=== PATIENT | female | born 1970 | race American Indian/Alaskan Native ===

== ENCOUNTER 2019-01-18 05:42 | Observation (INO) | payer BC ==
[2019-01-14 11:42] LABS: Basophils % (Auto) 0.5 % (0.0-1.8); Eosinophils # (Auto) 0.1 K/mm3 (0.0-0.4); Eosinophils % (Auto) 1.9 % (0.0-4.3); Hematocrit 37.9 % (30.3-42.9); Hemoglobin 13.1 gm/dl (10.1-14.3); Lymphocytes # (Auto) 2.1 K/mm3 (1.2-5.4); Lymphocytes % (Auto) 30.1 % (13.4-35.0); Mean Corpuscular HGB Conc 35 % (30-34); Mean Corpuscular Volume 92 fl (79-97); Monocytes # (Auto) 0.5 K/mm3 (0.0-0.8); Monocytes % (Auto) 7.6 % (0.0-7.3); Platelet Count 336 K/mm3 (140-440); Red Blood Count 4.15 M/mm3 (3.65-5.03)
[2019-01-14 12:00] LABS: BUN/Creatinine Ratio 11; Blood Urea Nitrogen 8 mg/dL (7-17); Calcium 10.2 mg/dL (8.4-10.2); Hemolysis Index 4
--- NOTE | 2019-01-14 12:31 | Anesthesia Consultation ---
Anesthesia Consult and Med Hx Date of service: 01/18/19 - Airway Anesthetic Teeth Evaluation: Good, Caps ROM Head & Neck: Adequate Mental/Hyoid Distance: Adequate Mallampati Class: Class I Intubation Access Assessment: Good - Pulmonary Exam CTA: Yes (h/o murmur. asymptomatic) - Cardiac Exam Cardiac Exam: RRR - Pre-Operative Health Status ASA Pre-Surgery Classification: ASA2 Proposed Anesthetic Plan: General Nerve Block: TAP - Cardiovascular System Hx Hypertension: Yes Hx Heart Murmur: Yes - Central Nervous System Hx Psychiatric Problems: No - Gastrointestinal Hx Gastroesophageal Reflux Disease: Yes - Other Systems Hx Cancer: No
--- NOTE | 2019-01-16 17:06 | History and Physical Report ---
History of Present Illness Date of examination: 01/14/19 History of present illness: Patient has been reassessed/reevaluated. H&P has been reviewed. No interval changes. This is a 48 years old female who presents with menstrual disorder. The symptoms began 6-12 months ago. She complains of irregular menses, mid-cycle spotting, heavy bleeding, history of ovarian cysts and cramping, but denies lack of menses, dysmenorrhea, clotting, history of thyroid disease, history of fibroids, history of PCOS, history of bleeding disorder, lightheadedness and fatigue. This is a 48 years old female who presents with pelvic pain. She denies dysuria, dysmenorrhea, dyspareunia, vaginal itching, vaginal discharge, vaginal odor, painful bowel movements, constipation, diarrhea, nausea, vomiting, back pain and fever. Pain is located umbilicus and suprapubic. She describes the pain as cramping. Episodes are intermittent and unpredictable. Patient's symptoms when present disrupts her normal daily activities Patient desires definitive treatment Vital Signs: Patient Profile: 48 Years Old Female Height: 66.25 inches (168.28 cm) Weight: 256 pounds (116.36 kg) BMI: 41.00 BSA: 2.23 Past History : 2 Term Births: 1 Premature Births: 0 Living Children: 1 Para: 1 Mult. Births: 0 Prev : 1 Prev. attempt? none Aborta: 1 Elect. Ab: 0 Spont. Ab: 1 Ectopics: 0 # 1 Delivery date: 11/07/2003 Delivery type: Delivery location: [facility] Infant Sex: Male weight: 11lbs 0oz Name: Thomas # 2 Delivery date: 10/21/2010 Delivery type: SAB Comments: D&C done [employer] History Operations: D&C: (10/20/2010) Foot surgery (2012) Abnormal PAP: negative Uterine Anomaly: negative Infection History HIV Risk Eval: no Personal hx. of genital herpes: no Partner hx. 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 Risk Factors: Smoked Tobacco Use: Never smoker Smokeless Tobacco Use: Never Passive smoke exposure: no Drug use: no HIV high-risk behavior: no Alcohol use: no Exercise: yes Seatbelt use: 100 % Review of Systems General Denies fever, chills, sweats, anorexia, fatigue, weakness, malaise, weight loss and sleep disorder. Complains of abnormal vaginal bleeding and pelvic pain. Denies vaginal discharge, incontinence, dysuria, hematuria, urinary frequency, amenorrhea, menorrhagia, genital sores, decreased libido, painful periods, painful sex, urinary urgency, hot flashes, vaginal dryness, vaginal itching and vaginal odor. CV Denies chest pains, palpitations, syncope, dyspnea on exertion, orthopnea, PND and peripheral edema. Resp Denies cough, dyspnea at rest, excessive sputum, hemoptysis, wheezing and pleurisy. GI Denies nausea, vomiting, diarrhea, constipation, change in bowel habits, abdominal pain, melena, hematochezia, jaundice, gas/bloating, indigestion/heartburn, dysphagia and odynophagia. Breast Denies left breast lump, right breast lump, nipple discharge, bloody discharge from nipple, breast pain, abnormal mammogram and breast enlargement. Psych Denies depression, anxiety, irritability and mood swings. Past History Past Medical History: hypertension, other (See HPI) Past Surgical History: , Other (See HPI) Social history: AND/DNR-allow natural Family history: other (See HPI) Medications and Allergies Allergies Allergy/AdvReac Type Severity Reaction Status Date / Time No Known Allergies Allergy Unverified 01/11/19 08:43 Home Medications Medication Instructions Recorded Confirmed Last Taken Type Lisinopril/Hydrochlorothiazide 1 each PO DAILY 01/11/19 01/11/19 Unknown History [Zestoretic 10-12.5 mg Tablet] Review of Systems Constitutional: other (See HPI) Exam - Physical Exam Narrative exam: HEENT: normocephalic, no lesions or deformities Skin no ulcers, xanthomas Breasts: skin/areolae normal, no masses, no nipple discharge, no dara thema/warmth/tenderness, and axillae normal. Abdomen: obese normal bowel sounds, soft, nontender, no HSM Well healed pfannenstiel scar Musculoskeletal: grossly normal ROM in joints, no joint tenderness or muscle weakness Neuro: no gross anomalities Extremities: normal alignment, no joint enlargement, crepitus, masses or tenderness; normal tone and strength [employer] Exams Vulva/Vagina: normal appearance, no discharge, lesions. No evidence of cystocele or rectocele. Cervix: normal appearance, no lesions, no discharge Uterus: unable to palpate due to obesity Adnexae: unable to palpate due to obesity Rectovaginal: exam defered - Constitutional Vitals: Temp Pulse Resp BP Pulse Ox 98.7 F 58 L 18 135/75 98 01/14/19 11:20 01/14/19 11:20 01/14/19 11:20 01/14/19 11:20 01/14/19 11:20 Results - Labs CBC & Chem 7: 01/14/19 10:47 01/14/19 10:47 Assessment and Plan - Patient Problems (1) Menorrhagia Current Visit: No Status: Acute Qualifiers: Menorrahagia type: premenopausal Qualified Code(s): N92.4 - Excessive bleeding in the premenopausal period Plan to address problem: Patient desires definitive treatment Patient desires hysterectomy Discussed risks and benefits of laparotomy, laparoscopy, vaginal and robotic assisted approaches for hysterectomies Patient desires robotic assisted total hysterectomy. Vee to precert and schedule Patient desires robotic assisted total hysterectomy. Consent reviewed and signed . The risks and alternatives for this surgery were reviewed with the patient. Discuss the risks of the surgery including infection, bleeding possibly heavy enough to require a blood transfusion, possible damage to bowel, bladder or ureter. Patient understand that this surgery with make her sterile.Patient understands if her ovaries are removed she will become menopausal. Also if unable to complete robitcally a laparotomy may required. Patient advised the small risks of spreading of malignancy if morcellator is used during the surgery patient understands and approve of use if necessary SHE DOES WANT TO HAVE THE OVARIES REMOVED (2) Hypertension, essential Current Visit: No Status: Chronic (3) Body mass index (BMI) of 40.1 to 44.9 in adult Current Visit: No Status: Acute
[~2019-01-18 05:42] MED LIST: LACTATED RINGERS 1,000 ML IV SCH
[2019-01-18] MEDS ORDERED: SUBLIMAZE IV PRN (06:00)
[2019-01-18] MEDS ORDERED: NEURONTIN PO NR (06:00)
[2019-01-18] MEDS ORDERED: VERSED IV NR (06:00)
[2019-01-18] MEDS ORDERED: ceFAZolin 3 GM in NACL 0.9% 100 ML IV NR (06:00)
[2019-01-18] MEDS ORDERED: MARCAINE 0.25% INFILTRATI ONE (07:26)
[2019-01-18] MEDS ORDERED: DECADRON ONE (07:26)
[2019-01-18] MEDS ORDERED: NEOSPORIN GU IR ONE ×2 (07:30→10:30)
[2019-01-18] MEDS ORDERED: DIPRIVAN 10 MG/ML IV ONE (07:42)
[2019-01-18] MEDS ORDERED: SUBLIMAZE ONE (07:42)
[2019-01-18] MEDS ORDERED: ROBINUL ONE (08:40)
[2019-01-18] MEDS ORDERED: QUELICIN ONE (08:40)
[2019-01-18] MEDS ORDERED: ZEMURON IV ONE (08:40)
[2019-01-18] MEDS ORDERED: XYLOCAINE MPF 2% ONE (08:40)
[2019-01-18] MEDS ORDERED: NEO SYNEPHRINE/NS Syringe(OR USE) IV ONE (08:40)
[2019-01-18] MEDS ORDERED: DILAUDID IV PRN (09:16)
--- NOTE | 2019-01-18 09:16 | Anesthesia Day of Surgery ---
Anesthesia Day of Surgery - Day of Surgery Patient Examined: Yes Patient H&P Reviewed: Yes Patient is NPO: Yes
[2019-01-18] MEDS ORDERED: DILAUDID ONE (09:44)
[2019-01-18] MEDS ORDERED: BLOXIVERZ ONE (09:46)
--- NOTE | 2019-01-18 10:27 | Operative Report ---
Operative Report Operative Report: Operative Report: Date of procedure: 01/18/2019 Pre-operative diagnosis: Symptomatic leiomyomata with menorrhalgia and dysmenorrhea Post-operative diagnosis: Same plus pelvic adhesive disease Procedure name(s): Robotic assisted total hysterectomy with bilateral salpingo- oophorectomy with lysis of adhesions Surgeon: Phu Dunn MD Manager Talent Acquisition: Mere Lwarence, certified control systems technician Anesthesia: General EBL: 50 mL Complications: None Findings: Uterus approximately 10 weeks in size with normal tubes and bilaterally right ovarian cyst approximately 4.5 cm in diameter and small left ovarian cyst patient with adhesions between the anterior uterus and bladder and the right adnexa and descending colon Specimen(s): Uterus including cervix was bilateral adnexa Procedure: Patient was brought to the operating room where general anesthesia was induced without difficulty. Patient was placed in the dorsal lithotomy position. Prepped and draped in the usual sterile manner for robotic procedure. Heath catheter was placed without difficulty. Speculum was placed in the vagina. A medium V-Care Uterine manipulator was placed without difficulty. Attention was now switched to the patient's abdomen. A vertical supra-umbilicus incision was made with a scalpel. A 10-12 trocar was placed in this incision under direct visualization. Intra-abdominal placement was verified with no evidence of internal organ damage. The patient pelvic findings were noted as above. It was determined that the patient was a candidate for robotic procedure. On both sides the umbilical incision at 8 cm, incisions were made for robotic trocar. Each robotic trocar was placed under direct visualization with no evidence of internal organ damage. One embalmer assistant ports were then placed. One 5 mm trocar was placed 2 fingerbreadths above the right iliac crest. At this time the patient was placed in extreme Trendelenburg. The da Lakisha robot was then docked on the patient's left side. At this time I took my place under the robotic operating alvarez. Starting on the patient's right side the right ureter was clearly seen out of the operative field. The ovarian vessels were clearly seen cauterize and cut with the robotic scissors. The meso salpinx were cauterized and cut reaching to the round ligament. The round ligament was cauterized and cut. The leaves of the broad ligament on that side was anteriorly and posteriorly. The anterior leaves were use to form a bladder flap anteriorly the posterior leaf was cut exposing the uterine vessels on that side. The uterine vessels were cauterized and cut the bladder flap was more clearly made. Attention was then switched to the patient's left side. The adhesions between the adnexa and the colon were taken down to improve visualization. Again the ureter was again identified and cleared out of the field. The same procedure was cauterized and cut and the ovarian vessels and receiving with some incising the round ligament broad the broad ligament then cauterized and cut and the uterine vessels were performed.. At this time the uterus was appearing very cyanotic. The adhesions on the anterior uterus and bladder were taken down. After inspecting the bladder flap insured no evidence of bladder injury, the colpotomy was then started. Incision started at 6:00 until the V-Care could be seen. This incision was extended from 6:00 to 9:00. Then from 6:00 to 3:00. Then from 9:00 to 12:00. This incision was extended from 3:00 to 12:00. At this time colpotomy was complete with no evidence of adjacent organ damage. The embalmer assistant remove the uterus from through the colpotomy site. The vaginal cuff was irrigated and cauterized and found to be hemostatic. The cuff was closed with roboticly using 0 V- Lock suture. The uterosacrals were plicated to help prevent prolapse. This closure was hemostatic after irrigation and Bovie. All pedicles were inspected and found to be hemostatic. The ureters were identified bilaterally and found to be functioning normal. The Heath bag had clear yellow urine. Meg is placed across the vaginal cuff. All instruments were then removed. The large trocar sites were closed in layers with 2-0 and 4-0 Vicryl. The smaller incisions were closed subcuticularly with 4-0 Vicryl. The patient tolerated procedure well. She was awakened in the operating room and accompanied to the recovery room in good condition.
[2019-01-18] MEDS ORDERED: NACL 0.9% IR ONE ×2 (10:30)
[2019-01-18] MEDS ORDERED: NORCO 5/325 PO PRN (12:07)
[2019-01-18] MEDS ORDERED: MILK OF MAGNESIA PO PRN (12:07)
[2019-01-18] MEDS ORDERED: CLIMARA TD SCH ×2 (12:07→15:56)
[2019-01-18] MEDS ORDERED: TYLENOL PO PRN (12:30)
[2019-01-18] MEDS: TORADOL IV SCH ×2 (13:32→22:10)
--- NOTE | 2019-01-18 15:04 | Post Anesthesia Evaluation ---
- Post Anesthesia Evaluation Patient Participated: Yes Airway Patent: Yes Stable Respiratory Function: Yes Nausea/Vomiting: No Temp > 96.8F: Yes Pain Manageable: Yes Adequeate Hydration: Yes Anesthesia Complications: No
--- NOTE | 2019-01-18 15:22 | Event Note ---
Date: 01/18/19 Day of surgery. Discuss operative findings with patient and questions answered. Patient without fever. Will ambulate in halls this evening. Urine output about 100 mL in Heath bag for the last 2 hours. We will continue routine postoperative care.
[2019-01-18] MEDS: ANCEF/NS 1 GM/50 ML 1 GM/50 ML BAG IV SCH (16:02)
[2019-01-18] MEDS: D5LR 1,000 ML IV SCH ×2 (17:00→22:10)
[2019-01-18] MEDS ORDERED: ZOFRAN IV PRN (17:05)
[2019-01-18] MEDS ORDERED: COLACE PO SCH (22:00)
[2019-01-19] MEDS: ANCEF/NS 1 GM/50 ML 1 GM/50 ML BAG IV SCH
[2019-01-19] MEDS: TORADOL IV SCH (04:36)
[2019-01-19 06:39] LABS: Hematocrit 30.3 % (30.3-42.9); Hemoglobin 10.6 gm/dl (10.1-14.3)
[2019-01-19 09:22] LABS: Hematocrit 32.3 % (30.3-42.9); Hemoglobin 11.3 gm/dl (10.1-14.3)
--- NOTE | 2019-01-19 11:07 | Progress Note ---
Assessment and Plan - Patient Problems (1) History of robot-assisted laparoscopic hysterectomy Current Visit: Yes Status: Acute Plan to address problem: -routine post op care -d/c home today Subjective - Subjective Date of service: 01/19/19 Principal diagnosis: POD #1 s/p RATH Interval history: Pt doing well. She has spontaneously voided, tolerated a regular diet, pain is well controlled, able to ambulate without assistance, and desires d/c home today. Patient reports: appetite normal, voiding normally, pain well controlled, flatus, ambulating normally, no nauseated Objective - Vital Signs Latest vital signs: Vital Signs Temp Pulse Resp BP BP Pulse Ox 01/19/19 08:52 98.5 F 61 14 114/50 97 01/19/19 05:14 98.7 F 67 18 104/55 93 01/19/19 04:36 18 01/19/19 00:27 98.7 F 67 18 114/53 95 01/18/19 22:40 18 01/18/19 22:10 18 01/18/19 20:39 98.5 F 83 20 128/65 94 01/18/19 11:30 97.3 F L 61 15 141/69 100 01/18/19 11:15 60 14 130/63 100 Intake and Output 01/18/19 01/19/19 01/19/19 22:59 06:59 14:59 Intake Total 1175.833 240 Output Total 400 600 Balance 775.833 -360 Intake: IV 695.833 ANCEF/NS 1 GM/50 ML 1 gm 50 In 50 ml @ 100 mls/hr IV Q8H AMAURI Rx#:[id number] D5lr 1,000 ml @ 125 mls/ 645.833 hr IV DIRECT AMAURI Rx#: [id number] Oral 360 Intake, Free Water 120 240 Output: Urine 400 600 Indwelling Catheter 400 600 Other: Total, Intake Amount 240 Total, Output Amount 400 600 Voiding Method Indwelling Catheter - Exam Cardiovascular: Present: Normal S1, Normal S2 Lungs: Present: Clear to auscultation, Normal air movement Abdomen: Present: normal appearance, soft, normal bowel sounds, other (incisions open to air c/d/i). Absent: distention, tenderness, guarding Extremities: Present: normal. Absent: tenderness, edema Deep Tendon Reflex Grade: Normal +2 Incision: Present: normal, dry, intact
--- NOTE | 2019-01-19 11:11 | Discharge Summary ---
Providers - Providers Date of Admission: 01/18/19 10:35 Date of discharge: 01/19/19 Attending physician: LUANNE BORGES Primary care physician: REILLY WHEELER MD Hospitalization Reason for admission: other (RATH) Procedure: other (RATH) Procedure details: see op note Incision: normal, dry, intact Hospital course: Pt s/p above stated procedure. She had routine post op care. She desires d/c home today. She will be d/c home today as course has not been complicated. Condition at discharge: Good Disposition: DC-01 TO HOME OR SELFCARE - Discharge Diagnoses (1) History of robot-assisted laparoscopic hysterectomy Status: Acute Plan - Discharge Medications Prescriptions: Ibuprofen [Motrin 800 MG tab] 800 mg PO Q6H PRN #30 tablet PRN Reason: Pain oxyCODONE /ACETAMINOPHEN [Percocet 5/325 mg] 1 - 2 tab PO Q4H PRN #20 tablet PRN Reason: Pain, Moderate - Provider Discharge Summary Activity: routine, no sex for 6 weeks, no heavy lifting 4 weeks, no strenuous exercise Additional instructions: [] Smoking cessation referral if applicable(refer to patient education folder for contact #) [] Refer to [facility] Call your doctor immediately for: * Fever > 100.5 * Heavy vaginal bleeding ( >1 pad per hour) * Severe persistent headache * Shortness of breath * Reddened, hot, painful area to leg or breast * Drainage or odor from incision. * Keep incision clean and dry at all times and follow doctor's instructions regarding bathing/showering - Follow up plan Follow up: REILLY WHEELER MD [Primary Care Provider] - 7 Days
[2019-01-19 13:07] VITALS: BP 141/69
== END 2019-01-19 13:00 | disposition home or self-care (01) ==
LOC: OR 05:42 → INTOOBSV 10:35 → OB 10:35
PROVIDERS: ADMIT Obstetrics & Gynecology; ATTEND Obstetrics & Gynecology
DX: N92.0 Excessive and frequent menstruation with regular cycle (principal); D25.9 Leiomyoma of uterus, unspecified; N94.6 Dysmenorrhea, unspecified; I10 Essential (primary) hypertension; K21.9 Gastro-esophageal reflux disease without esophagitis; Z98.890 Other specified postprocedural states; Z68.41 Body mass index [BMI] 40.0-44.9, adult; Z90.710 Acquired absence of both cervix and uterus
CPT/HCPCS: 36415; 58552; 64450; 80048; 84703; 85014; 85018; 85025; 86850; 86900; 86901; 88300; 88307; 96365; 96366; 96375; 96376; A4217; G0378; J0330; J0690; J1100; J1170; J1885; J2250; J2370; J2405; J2704; J2710; J3010; J7120; J7121; S2900; 88302